=== PATIENT | female | born 1975 | race Caucasian/White ===

== ENCOUNTER 2019-01-25 22:54 | Emergency (ER) | payer BC, MEDICAID, OTHER ==
[~2019-01-25] VITALS: Ht 167.6 cm; Wt 74.5 kg
[~2019-01-25 22:54] MED LIST: HYDR-3498 PO; IBUP-1542 PO; IBUP800T48 PO; OXYC-279 PO
[2019-01-25 22:57] VITALS: Ht 167.6 cm; Wt 74.5 kg
[2019-01-25] MEDS ORDERED: KETOROLAC 15 MG INJ IV STA (23:53)
[2019-01-25] MEDS ORDERED: BELLADONNA/PHENOBARBITAL TAB PO STA (23:53)
[2019-01-25] MEDS ORDERED: SOD CHLORIDE 0.9% 1,000 ML IV STA (23:53)
[2019-01-25] MEDS ORDERED: LIDOCAINE/MYLANTA 40 ML BTL PO STA (23:53)
[2019-01-25] MEDS ORDERED: ONDANSETRON 4 MG INJ IV STA (23:53)
[2019-01-26] MEDS ORDERED: OXYCODONE/ACETAMINOPHEN (5/325) TAB PO ONE (01:00)
[2019-01-26 01:07] VITALS: BP 127/73; PULSE 80; RESP 16
== END 2019-01-26 01:45 | disposition home or self-care (01) ==
LOC: E/R 22:54
DX: K80.20 Calculus of gallbladder without cholecystitis without obstruction (principal); G89.4 Chronic pain syndrome
CPT/HCPCS: 36415; 80053; 81003; 83690; 84703; 85025; 85610; 85730; 96374; 96375; J1885; J2405; J7030; Z7502; Z7610